=== PATIENT | female | born 1970 | race Caucasian/White ===

== ENCOUNTER 2024-11-17 12:50 | Emergency (ER) | payer BC ==
[~2024-11-17] VITALS: Ht 160 cm; Wt 95.1 kg
[2024-11-17 12:53] VITALS: BP 171/92; PULSE 76; O2SAT 97
--- NOTE | 2024-11-17 13:29 | RADIOLOGY REPORT ---
EXAM: DI SHOULDER, COMPLETE (MIN 2 VWS) CLINICAL HISTORY: Shoulder Pain COMPARISON: None TECHNIQUE: DI SHOULDER, COMPLETE (MIN 2 VWS) Findings/Impression: 3 views of the left shoulder. Mildly displaced fracture of the left greater tuberosity and humeral neck. There is no evidence of dislocation, blastic, or lytic lesions. No radiopaque foreign bodies.
[2024-11-17 15:10] VITALS: RESP 16
[2024-11-17] MEDS: HYDROcodone/acetaminophen 10/325mg tab PO ONE (15:10)
--- NOTE | 2024-11-17 15:10 | Physician Documentation ---
History of Present Illness ~ Chief Complaint: Mechanical Fall Stated Complaint: L SHOULDER PAIN Time Seen by MD: 14:06 OK to notify your PCP?: Yes Source: patient Mode of Arrival: POV Exam Limitations: no limitations HPI 53-year-old female complaining of right knee pain and left shoulder pain and hand pain after fall today. No head strike or thinners or neck pain. Limited range motion of left shoulder due to pain. Good range of motion and right hand and right knee. Tetanus within 5 Years?: Yes (2022) Medication Reconciliation Allergies: Coded Allergies: No Known Allergies (Unverified , 11/17/24) Scheduled PRN Hydrocodone Bit/Acetaminophen (Hydrocodon-Acetaminophn 10-325 tablet), 1 TAB PO TID PRN PRN for pain Review of Systems All Other Systems at this time: Reviewed and Negative Physical Exam Vital Signs: Temperature: 98.6, Source: Temporal, Heart Rate: 76, Respiratory Rate: 16, BP: 171/92, Pulse Oximetry: 97, Weight: 95.100 Oxygen Flow Rate: 0 Pulse Oximetry Reflects: adequate oxygenation Physical Exam General: Alert, no apparent distress. HEENT: PERRL, EOMI, no injection, moist mucous membranes. Neck: Full range of motion. Respiratory: Lungs clear, no respiratory distress. Chest: No accessory muscle use. Cardiovascular: Regular rate and rhythm, no murmurs. Gastrointestinal: Soft, nontender, nondistended. Bowels sounds present. Extremities: Limited range motion of left shoulder due to pain, tenderness to palpation. Full range motion of right knee and right hand. Small bruise to right knee Neurologic: Oriented x4. Psychiatric: Normal mood and affect. Skin: Normal color, warm and dry. No edema, no ecchymosis. Progress Results/Orders Reviewed/noted all lab results: Yes Results/Orders Completed Orders - JOANN BRYANT Hydrocodone/Apap 10/325 (Newberry 10/325mg (11/17/24 15:10) Medications Received in ER Medications (Trade) Dose Ordered Sig/[place] Route PRN Reason Start Time Stop Time Status Last Admin Dose Admin (Newberry 10/325mg tab) 1 tab ONCE ONCE PO 11/17/24 15:10 11/17/24 15:11 DC 11/17/24 15:10 1 TAB Vital Signs 11/17/24 11/17/24 12:53 15:10 Temp 98.6 Pulse 76 Resp 16 16 B/P (MAP) 171/92 Pulse Ox 97 O2 Flow Rate 0 EKG/XRAY/CT/US/VASC/MRI Bone/Soft Tissue X-Ray (Ext.) : Additional Comment Left shoulder x-ray as interpreted by me; no joint effusion, no soft tissue swelling, no dislocation, or foreign body. Mildly displaced fracture of the left greater tuberosity and humeral neck. Medical Decision Making Findings 53-year-old female with right hand, right knee and left shoulder pain after fall today. Her physical exam has very limited range motion of the left shoulder due to pain and it is very tender to palpation. She has a good range motion to the right hand and right knee with a small bruise to the right knee. Her left shoulder x-ray shows: Mildly displaced fracture of the left greater tuberosity and humeral neck. We applied a sling to the left shoulder. I gave her a Newberry while here in the department and a prescription for Newberry as well. She has been told to follow up with the primary care provider in the next 3 days to obtain a referral for Orthopedics. She can return back here for any new or worsening symptoms. Differential Dx:Considerations: Include: Vascular injury, Contusion(s), Hematoma(s) Departure Disposition: 01 HOME / SELF CARE / HOMELESS Impression: Primary Impression: Fracture of humerus Condition: Stable Discharge Instructions: Humerus Fracture Treated With Immobilization Additional Instructions: Please use a half tablet of the Newberry for your pain relief and if it is not working then you can take a full tablet. Please no driving on this medication. You can ice the shoulder for the next 48 hours, 20 minutes on/off and alternate ice and heat after that. Please wear the sling that was applied I to provide immobilization. Follow up with her primary care provider in the next 3 days to receive a referral to [facility] as we can not do a direct referral. Please return back here if you have any new or worsening symptoms Referrals: NO PRIMARY CARE PROVIDER (PCP) [facility] Prescriptions Hydrocodone Bit/Acetaminophen (Hydrocodon-Acetaminophn 10-325 tablet) 10mg- 325mg Tablet 1 TAB PO TID PRN PRN for pain for 5 Days, #15 TAB Prov: JOANN BRYANT [employer] 11/17/24 Education Educated: Patient Educated regarding: diagnosis, treatment, prognosis, need for follow up Signature Scribe Signature: . Attestation: Scribed for Joann Bryant by Joann Maxwell NP . 11/17/24 15:25 JOANN BRYANT Nov 17, 2024 15:10
[2024-11-17] MEDS ORDERED: HYDR-3972 PO (15:13)
[2024-11-17 15:30] VITALS: TEMP 98.6
== END 2024-11-17 15:31 | disposition home or self-care (01) ==
LOC: ER 12:51
DX: S42.212A Unspecified displaced fracture of surgical neck of left humerus, initial encounter for closed fracture (principal); S80.01XA Contusion of right knee, initial encounter; M25.512 Pain in left shoulder; W18.39XA Other fall on same level, initial encounter; Y93.89 Activity, other specified; Y92.89 Other specified places as the place of occurrence of the external cause; Y99.8 Other external cause status
CPT/HCPCS: 73030; 99284; A4565